=== PATIENT | male | born 1985 | race African-American/Black ===

== ENCOUNTER 2017-09-08 08:28 | Emergency (ER) | payer SELFPAY ==
[2017-09-08] MEDS: LORazepam 1 MG TABLET PO (09:07)
== END 2017-09-08 10:01 | disposition home or self-care (01) ==
LOC: ER 08:28
DX: R07.89 Other chest pain (principal); F41.9 Anxiety disorder, unspecified; R00.2 Palpitations; R20.0 Anesthesia of skin; F15.10 Other stimulant abuse, uncomplicated; F12.10 Cannabis abuse, uncomplicated; F17.210 Nicotine dependence, cigarettes, uncomplicated
CPT/HCPCS: 71045; 93005; 99284